=== PATIENT | female | born 1955 | race Caucasian/White ===

== ENCOUNTER 2023-05-06 17:16 | Emergency (ER) | payer OTHER, SELFPAY ==
[2023-05-06 17:20] VITALS: BP 147/89
[2023-05-06 17:36] LABS: % Basophils 0.6 % (0-2); % Eosinophils 2.2 % (0-6); % Immature Granulocytes 0.2 % (0-0.5); % Lymphocytes 39.8 % (20.5-51.1); % Monocytes 7.2 % (1.7-9.3); Absolute Eosinophils 0.1 10^3/uL (0-0.7); Absolute Lymphocytes 2.5 10^3/uL (1.2-3.4); Absolute Monocytes 0.5 10^3/uL (0.1-0.6); Absolute Neutrophils 3.2 10^3/uL (1.4-6.5); Hematocrit 39.1 % (37.0-47.0); Hemoglobin 13.3 g/dL (12.0-16.0); Mean Corpuscular Hgb 29.2 pg (27.0-31.0); Mean Corpuscular Volume 85.9 fL (81.0-99.0); Mean Platelet Volume 10.8 fL (7.4-10.4); Nucleated Red Blood Cells % 0 %; Platelet Count 273 10^3/uL (130-400); Red Blood Cell Count 4.55 10^6/uL (4.20-5.40); Red Cell Dist. Width 13.8 % (11.5-14.5); White Blood Cell Count 6.4 10^3/uL (4.8-10.8)
[2023-05-06 17:56] LABS: ALT (SGPT) 27 U/L (0-35); AST (SGOT) 34 U/L (14-36); Albumin 4.3 g/dl (3.5-5.0); Alkaline Phosphatase 76 U/L (38-126); Blood Urea Nitrogen 18 mg/dl (7-17); Calcium 9.8 mg/dl (8.4-10.2); Carbon Dioxide 24 mmol/L (22-30); Chloride 107 mmol/L (98-107); Glucose 101 mg/dl (70-99); Potassium 4.1 mmol/L (3.5-5.1); Sodium 137 mmol/L (135-145); Total Bilirubin 0.6 mg/dl (0.2-1.3); Total Protein 6.6 g/dl (6.3-8.2); eGFR > 60.00
[2023-05-06 18:01] LABS: Troponin I < 0.012 ng/ml
[2023-05-06 18:59] LABS: D-Dimer < 0.27 ug/mlFEU (0.00-0.50)
--- NOTE | 2023-05-06 19:21 | ED.GENMED ---
History of Present Illness
General
Chief Complaint: Chest Pain
Source: patient
Exam Limitations: none
Time Seen by Provider: 05/06/23 17:58
Nursing documentation reviewed up to this point in time: agreed with
Travel History
Have you had any contact with someone who has COVID-19?: No
Do you have any symptoms of coronavirus? Fever > 100 degrees, chills, cough, shortness of breath, sore throat, loss of taste or smell, muscle aches, or headache?: No
History of Present Illness
History of Present Illness:
Patient to ED for eval of chest pain.States pain started suddenly at 11AM. Located at center of chest and migrated out to left and right lower chest. Chest felt tight. Denies any n/v/diaphoresis. States she has felt SOB today.Denies any blurred
vision or dizziness. No prior history of same. Chest pain resolved in approx 30 minutes. She called her PCP and was advised to come to ED. She remains symptom free.
Past History
Past History
ED Past Medical History: Psychiatric (Depression) and Other (neuropathy, osteoporosis)
ED Past Surgical History: Appendectomy
Social History
Alcohol: None
Drug: None
Review of Systems
Review of Systems
Allergies reviewed?: Yes
All Other Systems: ROS reviewed and negative except as documented in HPI and ROS
Constitutional: Reports no symptoms
EENT: Reports no symptoms
Respiratory: Reports no symptoms
Cardiac: Reports chest pain
ABD/GI: Reports no symptoms
: Reports no symptoms
Musculoskeletal: Reports no symptoms
Skin: Reports no symptoms
Neurological: Reports no symptoms
Psychiatric: Reports no symptoms
Phy Exam
General Physical Exam
General Presentation: well appearing and no apparent distress
General age: appears stated age
General Skin: warm and dry
General Habitus: normal
Cardiovascular Exam
Cardiovascular Exam: regular rate/rhythm and no edema
Pulmonary Exam
Pulmonary Exam: lungs clear and no respiratory distress
Gastrointestinal Exam
Gastrointestinal Exam: normal bowel sounds, non tender, soft, no organomegaly and non distended
Musculoskeletal Exam
Musculoskeletal Exam: full ROM and neuro vasc intact
Skin Exam
Skin Exam: normal color, warm/dry and no rash
Psychiatric Exam
Psychiatric Exam: normal mood/affect
Scores
Heart Score for Chest Pain Patients
STEMI patient?: No
History: Slightly or Non-Suspicious
ECG: Normal
Age: >/= 65 years
Risk Factors: 1 or 2 Risk Factors
Troponin: </= Normal Limit
Heart Score for Chest Pain Patients: 3
Heart Score Risk: 2.5% MACE over next 6 weeks
Course
Orders/Labs/Results
Orders:
Orders
05/06/23 17:24
Electrocardiogram (*1) Urgent
Reason for Study: Chest Pain
Cardiac Monitoring- Treatment ONCE
EKG- Treatment ONCE
IV Insert/Care/Rem.- Treatment PRN
O2 Therapy [RESP] Urgent
Titrate/Wean O2 to maintain O2 sat greater than (%): 90
Special Instructions: Maintain sats >/=90%
Pulse Ox/spot Check [RESP] Urgent
Quantity: 1
Special Instructions: ON ROOM AIR
05/06/23 17:31
Complete Blood Count/With Diff Urgent
Comprehensive Metabolic Panel Urgent
Troponin I Urgent
05/06/23 18:30
CR Chest - 2 Views Urgent
Comment:
Reason For Exam: chest pain SOB
05/06/23 18:37
D-Dimer Urgent
Abnormal Lab Results
05/06/23
17:31
MPV 10.8 H fL
(7.4-10.4)
BUN 18 H mg/dl
(7-17)
Glucose 101 H mg/dl
(70-99)
05/06/23 17:31
05/06/23 17:31
Vital Signs
Initial and Last Documented VS:
Initial Vital Signs
Temp Pulse Resp BP Pulse Ox
97.9 F 88 18 147/89 96
05/06/23 17:20 05/06/23 17:20 05/06/23 17:20 05/06/23 17:20 05/06/23 17:20
Last Documented Vital Signs
Temp Pulse Resp BP Pulse Ox
97.9 F 88 18 147/89 96
05/06/23 17:20 05/06/23 17:20 05/06/23 17:20 05/06/23 17:20 05/06/23 17:20
*Radiology
Radiology exam reviewed: radiology read reviewed
*Pulse Oximetry
Patient hypoxic: no
*EKG
Interpretation: normal
Comparison EKG: no comparison EKG present
Rate: normal
Rhythm: sinus
*Critical Care Note
Total Time (30-74mins, 75-104mins- exclusive of procedures): Not Applicable
Update Note
Update Note:
Patient to ED for eval of chest pain this AM. Lasted approx 30 minutes. No associated symptoms. EKG NSR. Troponin neg, ddimer and CXR neg. She remains symptom free. She is discharged home and will follow up with PCP in AM. Given instructions
on s/s to return to ED and she is agreeable to plan
ED Attending Note
-
Portions of this chart may have been created with voice recognition software.� Occasional wrong word or��sound alike� substitutions may have occurred due to the inherent limitations of voice recognition software.
Discharge Plan
Departure
Patient Disposition: Home (Routine Discharge)
Date of Disposition: 05/06/23
Time of Disposition: 19:18
Patient with high blood pressure during this ER visit?: No
Condition: Good
Covid-19: Not Applicable
Discharge Problem:
Chest pain
Instructions: Chest Pain PCP Follow Up
Prescriptions:
No Action
pregabalin [Lyrica] 150 MG capsule
150 mg PO BID
Patient Comments:
variable times
pregabalin [Lyrica] 300 MG capsule
300 mg PO BID
Patient Comments:
18:00 and midnight
alprazolam 1 MG tablet
1 mg PO BIDPRN PRN (Reason: ANXIETY)
zolpidem 10 MG tablet
10 mg PO HS
acetaminophen 325 MG tablet
650 mg PO Q4HPRN PRN (Reason: mild pain , temp > 99.4) Qty: 30 0RF
polyethylene glycol 3350 17 GRAMS powder in packet
17 grams PO DAILY PRN (Reason: constipation) 30 Days Qty: 1 0RF
Mucinex 1,200 mg Tablet Extended Release 12hr
1,200 mg PO BID PRN (Reason: Cold)
Interventions
Interventions:
*Risk Screen - Suicide Last Done: 05/06/23 17:21
*General Assessment Last Done: 05/06/23 17:21
*Neglect/Abuse Screening Last Done: 05/06/23 17:21
ED- Fall Risk Assessment Last Done: 05/06/23 18:42
ED- Cardiac Assessment Last Done: 05/06/23 18:42
Discharge Date and Time
Print Language: WOLOF
== END 2023-05-06 19:39 | disposition home or self-care (01) ==
LOC: EMR 17:16
PROVIDERS: Emergency Medicine; Nurse Practitioner; EMERGENCY PHYSICIAN Emergency Medicine; FAMILY PHYSICIAN Family Medicine
DX: R07.89 Other chest pain (principal); R06.02 Shortness of breath; G62.9 Polyneuropathy, unspecified; M81.0 Age-related osteoporosis without current pathological fracture; K21.9 Gastro-esophageal reflux disease without esophagitis; F32.A Depression, unspecified; Z87.442 Personal history of urinary calculi; Z88.2 Allergy status to sulfonamides
CPT/HCPCS: 99284; 94760; 71046; 80053; 84484; 85025; 85379; 93005

== ENCOUNTER → 2024-11-30 14:19 | Outpatient (REF) | payer OTHER, SELFPAY | LOC: HWRAD 14:19 | PROVIDERS: ATTENDING PHYSICIAN Family Medicine | DX: S63.639A Sprain of interphalangeal joint of unspecified finger, initial encounter (principal) | CPT/HCPCS: 73130 ==